=== PATIENT | female | born 1985 | race African-American/Black ===

== ENCOUNTER 2020-03-18 12:29 | Observation (INO) | payer MEDICAID ==
[~2020-03-18] VITALS: Ht 152.4 cm; Wt 98.9 kg
== END 2020-03-18 17:00 | disposition home or self-care (01) ==
LOC: 8 EST LDRP 12:29 → 8 EST A/PP 12:47
PROVIDERS: ADMIT Obstetrics & Gynecology; ATTEND Obstetrics & Gynecology
DX: O12.13 Gestational proteinuria, third trimester (principal); Z3A.31 31 weeks gestation of pregnancy
CPT/HCPCS: 59025; 76815; 76818; G0378; 99281

== ENCOUNTER 2020-03-20 12:00 | Observation (INO) | payer MEDICAID ==
[2020-03-21] MEDS ORDERED: PNV1TABL76 PO (15:39)
[2020-03-21] MEDS ORDERED: MAGN400T26 PO (15:40)
[2020-03-21] MEDS ORDERED: FERR325T6 PO (15:41)
== END 2020-03-20 15:30 | disposition home or self-care (01) ==
LOC: OPOBV 12:00 → EDSTATUS 12:05 → L&D 12:05 → 8 EST A/PP 12:25
PROVIDERS: ADMIT Obstetrics & Gynecology; ATTEND Obstetrics & Gynecology
DX: Z34.93 Encounter for supervision of normal pregnancy, unspecified, third trimester (principal); Z3A.31 31 weeks gestation of pregnancy
CPT/HCPCS: 59025; 76815; 76818; G0378

== ENCOUNTER 2020-03-21 08:29 | Inpatient (IN) | payer MEDICAID ==
[~2020-03-21] VITALS: Ht 152.4 cm; Wt 98.9 kg
[2020-03-21] MEDS: ACETAMINOPHEN 500MG TABLET PO PRN (11:07)
[2020-03-21 11:09] LABS: BASOPHILS % 0.4 % (0.0-2.0); EOSINOPHILS % 0.6 % (0.0-5.0); HEMOGLOBIN. 12.2 g/dL (12.0-16.0); LYMPHOCYTES % 31.5 % (20.0-50.0); MEAN CORPUSCULAR HEMOGLOBIN 26.1 pg (28.0-32.0); MEAN CORPUSCULAR VOLUME 79.1 fL (81.0-99.0); MEAN PLATELET VOLUME 10.4 fl (7.4-10.4); MONOCYTES % 7.5 % (2.0-8.0); PLATELET 101 x1000/uL (130-400); RED BLOOD CELL COUNT 4.68 mill/uL (4.2-5.4); RED CELL DISTRIBUTION WIDTH 16.4 % (11.6-14.6)
[2020-03-21 11:12] LABS: CLARITY URINE CLEAR (CLEAR); COLOR URINE YELLOW (YELLOW); KETONES URINE NEGATIVE (NEGATIVE); LEUKOCYTE ESTERASE URINE NEGATIVE (NEGATIVE); NITRITE URINE NEGATIVE (NEGATIVE); OCCULT BLOOD URINE NEGATIVE (NEGATIVE); PH URINE 6.5 (4.5-8.0); PROTEIN URINE 3+ (NEGATIVE); SPECIFIC GRAVITY URINE 1.016 (1.005-1.030); UROBILINOGEN URINE 0.2 E.U./dL (0.2-1.0)
[2020-03-21 11:22] LABS: CHLORIDE 106 mEq/L (98-107)
[2020-03-21 11:25] LABS: D-DIMER 1.28 mg/L FEU (<0.50); INR 0.9; PARTIAL THROMBOPLASTIN TIME 27.4 sec (23.4-31.0); PROTHROMBIN TIME 9.8 sec (9.6-11.0)
[2020-03-21] MEDS ORDERED: BUTORPHANOL TARTRATE 2 MG/ML VIAL IV PRN (13:45)
[2020-03-21] MEDS ORDERED: METHYLERGONOVINE MALEATE 0.2 MG/ML IM PRN (13:45)
[2020-03-21] MEDS ORDERED: LIDOCAINE HCL 1% 20ML VIAL (Pyxis) INJ INFIL SCH (13:45)
[2020-03-21] MEDS ORDERED: DEXT 5%/LR + PITOCIN 20UNITS/L 1,000 ML IV SCH (13:45)
[2020-03-21] MEDS ORDERED: NALOXONE HCL 0.4 MG/ML 1ML VIAL IM PRN (13:45)
[2020-03-21] MEDS ORDERED: CARBOPROST TROMETHAMINE 250 MCG/ML AMPUL IM PRN (13:45)
[2020-03-21] MEDS ORDERED: MISOPROSTOL 100MCG TABLET VG SCH (13:45)
[2020-03-21] MEDS: LACTATED RINGERS 1,000 ML IV SCH ×3 (14:48→23:58)
[2020-03-21] MEDS ORDERED: PNV1TABL76 PO (15:39)
[2020-03-21] MEDS ORDERED: MAGN400T26 PO (15:40)
[2020-03-21] MEDS ORDERED: FERR325T6 PO (15:41)
[2020-03-21 20:03] LABS: BASOPHILS % 0.3 % (0.0-2.0); EOSINOPHILS % 0.7 % (0.0-5.0); HEMATOCRIT. 35.6 % (36.0-48.0); HEMOGLOBIN. 11.7 g/dL (12.0-16.0); LYMPHOCYTES % 30.8 % (20.0-50.0); MEAN CORPUSCULAR HEMOGLOBIN 25.9 pg (28.0-32.0); MEAN PLATELET VOLUME 10.8 fl (7.4-10.4); MONOCYTES % 4.5 % (2.0-8.0); NEUTROPHILS % 63.7 % (40.0-76.0); PLATELET 97 x1000/uL (130-400); RED BLOOD CELL COUNT 4.51 mill/uL (4.2-5.4); RED CELL DISTRIBUTION WIDTH 16.4 % (11.6-14.6)
[2020-03-21 20:13] LABS: INR 0.9; PROTHROMBIN TIME 9.8 sec (9.6-11.0)
[2020-03-21 20:53] LABS: *AMPHETAMINES SCREEN URINE NEGATIVE (NEGATIVE)
[2020-03-21 20:54] LABS: *BARBITURATES SCREEN URINE NEGATIVE (NEGATIVE); *BENZODIAZEPINES SCREEN URINE NEGATIVE (NEGATIVE); *COCAINE SCREEN URINE NEGATIVE (NEGATIVE); CANNABINOID URINE SCREEN NEGATIVE (NEGATIVE); METHADONE URINE SCREEN NEGATIVE (NEGATIVE); OPIATES URINE SCREEN NEGATIVE (NEGATIVE); PHENCYCLIDINE URINE SCREEN NEGATIVE (NEGATIVE)
[2020-03-21 21:04] LABS: HEPATITIS B SURFACE ANTIGEN NEGATIVE
[2020-03-21] MEDS ORDERED: BETAMETHASONE ACET/BETAMET 30 MG/5 ML VIAL IM NR (23:30)
[2020-03-22] MEDS: MAGNESIUM 20 G PREMIX (L & D) 500 ML IV SCH ×3 (00:45→17:05)
[2020-03-22] MEDS: ACETAMINOPHEN 500MG TABLET PO PRN ×3 (06:40→17:03)
[2020-03-22] MEDS: LACTATED RINGERS 1,000 ML IV SCH ×2 (08:41→22:29)
[2020-03-22] MEDS ORDERED: BETAMETHASONE ACET/BETAMET 30 MG/5 ML VIAL IM NR (23:30)
[2020-03-23] MEDS: MAGNESIUM 20 G PREMIX (L & D) 500 ML IV SCH (04:03)
[2020-03-23] MEDS: ACETAMINOPHEN 500MG TABLET PO PRN ×2 (06:26→14:37)
[2020-03-24] MEDS ORDERED: ONDANSETRON HCL 4MG TABLET PO PRN (01:30)
[2020-03-24] MEDS ORDERED: LACTATED RINGERS 1,000 ML IV SCH (02:00)
[2020-03-24] MEDS ORDERED: ONDANSETRON HCL 4MG/2ML INJ IV PRN ×2 (02:00→14:45)
[2020-03-24] MEDS ORDERED: CITRIC ACID/SODIUM CITRATE SOLN 30ML UDC PO NR ×2 (07:00→13:53)
[2020-03-24] MEDS ORDERED: MORPHINE SULFATE/PF 1MG/ML 10ML AMP ONE (12:22)
[2020-03-24] MEDS ORDERED: FENTANYL CITRATE/PF 50MCG/ML 2ML VIAL ONE (12:22)
[2020-03-24] MEDS ORDERED: GLYCOPYRROLATE 0.2 MG/ML 2ML VIAL ONE (12:23)
[2020-03-24] MEDS ORDERED: ONDANSETRON HCL 4MG/2ML INJ ONE (12:23)
[2020-03-24 12:31] LABS: BASOPHILS % 0.2 % (0.0-2.0); HEMOGLOBIN. 11.5 g/dL (12.0-16.0); LYMPHOCYTES % 20.5 % (20.0-50.0); MEAN CORPUSCULAR HEMOGLOBIN 26.1 pg (28.0-32.0); MEAN CORPUSCULAR VOLUME 79.2 fL (81.0-99.0); MEAN PLATELET VOLUME 10.5 fl (7.4-10.4); MONOCYTES % 5.7 % (2.0-8.0); NEUTROPHILS % 73.6 % (40.0-76.0); PLATELET 102 x1000/uL (130-400); RED BLOOD CELL COUNT 4.42 mill/uL (4.2-5.4); RED CELL DISTRIBUTION WIDTH 16.9 % (11.6-14.6)
[2020-03-24] MEDS ORDERED: CEFAZOLIN SODIUM 1000MG/VIAL ONE (13:37)
[2020-03-24] MEDS ORDERED: OXYTOCIN 10 UNITS/ML 1ML ONE (13:37)
[2020-03-24] MEDS ORDERED: KETOROLAC 60MG/2ML VIAL IM ONE (14:18)
[2020-03-24] MEDS ORDERED: DIPHENHYDRAMINE 50MG/ML VIAL ONE (14:18)
[2020-03-24] MEDS ORDERED: LANOLIN OINT 7GM TUBE TOP PRN (14:45)
[2020-03-24] MEDS ORDERED: IBUPROFEN 400MG TABLET PO PRN (14:45)
[2020-03-24] MEDS ORDERED: DIPHENHYDRAMINE 25MG CAPSULE PO PRN (14:45)
[2020-03-24] MEDS ORDERED: HYDROCODONE/ACETAMINOPHEN 5/325MG TABLET PO PRN (14:45)
[2020-03-24] MEDS ORDERED: DIPHENHYDRAMINE 50MG/ML VIAL IV PRN (15:00)
[2020-03-24] MEDS ORDERED: NALOXONE HCL 0.4 MG/ML 1ML VIAL IV PRN (15:00)
[2020-03-24] MEDS: LABETALOL HCL 100MG TABLET PO SCH (16:11)
[2020-03-24 18:15] VITALS: BP 160/93
[2020-03-24] MEDS: DEXT 5%/LR + PITOCIN 20UNITS/L 1,000 ML IV SCH (18:22)
[2020-03-24] MEDS: KETOROLAC 30MG/ML VIAL IV SCH (18:22)
[2020-03-24 18:50] VITALS: BP 140/82
[2020-03-24 20:00] VITALS: BP 135/76
[2020-03-25] MEDS: KETOROLAC 30MG/ML VIAL IV SCH ×2 (00:25→07:30)
[2020-03-25 00:30] VITALS: BP 125/73
[2020-03-25] MEDS: DEXT 5%/LR + PITOCIN 20UNITS/L 1,000 ML IV SCH (03:20)
[2020-03-25 04:30] VITALS: BP 117/68
[2020-03-25 07:26] LABS: BASOPHILS % 0.2 % (0.0-2.0); EOSINOPHILS % 0.2 % (0.0-5.0); HEMATOCRIT. 31.7 % (36.0-48.0); HEMOGLOBIN. 10.5 g/dL (12.0-16.0); LYMPHOCYTES % 18.6 % (20.0-50.0); MEAN CORPUSCULAR HEMOGLOBIN 26.3 pg (28.0-32.0); MEAN CORPUSCULAR VOLUME 79.7 fL (81.0-99.0); MEAN PLATELET VOLUME 10.6 fl (7.4-10.4); MONOCYTES % 7.5 % (2.0-8.0); NEUTROPHILS % 73.5 % (40.0-76.0); PLATELET 103 x1000/uL (130-400); RED BLOOD CELL COUNT 3.98 mill/uL (4.2-5.4); RED CELL DISTRIBUTION WIDTH 16.8 % (11.6-14.6)
[2020-03-25 07:28] VITALS: BP 117/76
[2020-03-25] MEDS: SIMETHICONE 80MG TABLET CHEW PO SCH ×4 (08:43→21:27)
[2020-03-25] MEDS: MAGNESIUM/ALUMINUM HYDROXIDE/SIMETHICONE 30ML UDC PO SCH ×4 (08:43→21:27)
[2020-03-25] MEDS: FERROUS SULFATE 325MG TABLET PO SCH ×3 (08:43→17:42)
[2020-03-25] MEDS: PRENATAL VIT/FE FUMARATE/FA TABLET PO SCH (08:43)
[2020-03-25] MEDS: LABETALOL HCL 100MG TABLET PO SCH ×3 (08:44→17:43)
[2020-03-25 12:04] VITALS: BP 117/73
[2020-03-25 17:15] VITALS: BP 116/72
[2020-03-25] MEDS: IBUPROFEN 800MG TABLET PO PRN ×2 (17:42→21:28)
[2020-03-25 19:45] VITALS: BP 123/57
[2020-03-25] MEDS: DOCUSATE SODIUM 100MG CAPSULE PO SCH (21:28)
[2020-03-26] VITALS (7 sets, daily range): BP systolic 124–143; BP diastolic 70–89
[2020-03-26] MEDS: IBUPROFEN 800MG TABLET PO PRN ×3 (03:53→21:21)
[2020-03-26 06:45] LABS: BASOPHILS % 0.3 % (0.0-2.0); EOSINOPHILS % 0.1 % (0.0-5.0); HEMATOCRIT. 30.4 % (36.0-48.0); HEMOGLOBIN. 9.8 g/dL (12.0-16.0); LYMPHOCYTES % 14.3 % (20.0-50.0); MEAN CORPUSCULAR HEMOGLOBIN 25.7 pg (28.0-32.0); MEAN CORPUSCULAR VOLUME 79.9 fL (81.0-99.0); MEAN PLATELET VOLUME 11.5 fl (7.4-10.4); MONOCYTES % 7.8 % (2.0-8.0); NEUTROPHILS % 77.5 % (40.0-76.0); PLATELET 88 x1000/uL (130-400); RED BLOOD CELL COUNT 3.81 mill/uL (4.2-5.4); RED CELL DISTRIBUTION WIDTH 16.2 % (11.6-14.6)
[2020-03-26] MEDS: PRENATAL VIT/FE FUMARATE/FA TABLET PO SCH (12:15)
[2020-03-26] MEDS: MAGNESIUM/ALUMINUM HYDROXIDE/SIMETHICONE 30ML UDC PO SCH ×2 (12:16→21:23)
[2020-03-26] MEDS: LABETALOL HCL 100MG TABLET PO SCH ×3 (12:16→21:20)
[2020-03-26] MEDS: FERROUS SULFATE 325MG TABLET PO SCH (12:17)
[2020-03-26] MEDS: SIMETHICONE 80MG TABLET CHEW PO SCH ×2 (12:17→21:18)
[2020-03-26] MEDS: DOCUSATE SODIUM 100MG CAPSULE PO SCH (21:18)
[2020-03-27 08:00] VITALS: BP 123/82
[2020-03-27 09:29] VITALS: BP 123/82
[2020-03-27] MEDS: IBUPROFEN 800MG TABLET PO PRN (09:29)
[2020-03-27] MEDS: PRENATAL VIT/FE FUMARATE/FA TABLET PO SCH (09:29)
[2020-03-27] MEDS: LABETALOL HCL 100MG TABLET PO SCH (09:29)
[2020-03-27] MEDS: SIMETHICONE 80MG TABLET CHEW PO SCH (09:29)
[2020-03-27] MEDS: FERROUS SULFATE 325MG TABLET PO SCH (09:29)
[2020-03-27] MEDS: MAGNESIUM/ALUMINUM HYDROXIDE/SIMETHICONE 30ML UDC PO SCH (09:30)
== END 2020-03-27 12:20 | disposition home or self-care (01) | DRG 540 ==
LOC: OB TRIAGE 08:29 → OBSVTOIN 08:29 → 8EST 08:59 → 8 EST A/PP 10:21 → 8 EST LDRP 14:34 → 8 EST A/PP 03-22 15:45 → 8EST 03-24 18:10
PROVIDERS: ADMIT Obstetrics & Gynecology; ATTEND Obstetrics & Gynecology
PROC: 10D00Z1 Extraction of Products of Conception, Low, Open Approach (ICD-10-PCS; principal; 2020-03-24)
DX: O13.4 Gestational [pregnancy-induced] hypertension without significant proteinuria, complicating childbirth (principal); O36.5930 Maternal care for other known or suspected poor fetal growth, third trimester, not applicable or unspecified; O60.14X0 Preterm labor third trimester with preterm delivery third trimester, not applicable or unspecified; O34.211 Maternal care for low transverse scar from previous cesarean delivery; O76 Abnormality in fetal heart rate and rhythm complicating labor and delivery; O24.429 Gestational diabetes mellitus in childbirth, unspecified control; O75.89 Other specified complications of labor and delivery; O99.334 Smoking (tobacco) complicating childbirth; O99.52 Diseases of the respiratory system complicating childbirth; G43.909 Migraine, unspecified, not intractable, without status migrainosus; F17.210 Nicotine dependence, cigarettes, uncomplicated; J45.20 Mild intermittent asthma, uncomplicated; Z20.828 Contact with and (suspected) exposure to other viral communicable diseases; Z37.0 Single live birth; Z3A.32 32 weeks gestation of pregnancy
CPT/HCPCS: 36415; 76805; 76815; 76818; 80053; 80305; 81003; 82575; 82962; 83735; 84156; 84550; 85025; 85379; 85384; 86592; 86644; 86703; 86762; 86850; 86900; 87340; 88307; 99281; G0378; J0595; J0690; J0702; J1200; J1885; J2274; J2405; J2590; J3010; J3475; J3490; J7120; U0003